=== PATIENT | female | born 1980 | race American Indian/Alaskan Native ===

== ENCOUNTER 2016-10-17 19:29 | Emergency (ER) | payer SELFPAY ==
[2016-10-17 20:16] VITALS: BP 144/97
[2016-10-17 20:48] LABS: Bacteria,Urine 1+ /HPF (Negative); Bilirubin,Urine NEG (Negative); Blood,Urine NEG (Negative); Ketones,Urine NEG (Negative); Leukocyte Esterase,Urine NEG (Negative); Mucus,Urine FEW /HPF; Nitrite,Urine NEG (Negative); Protein,Urine <15 mg/dL mg/dL (Negative); Urobilinogen,Urine < 2.0 mg/dL (<2.0)
--- NOTE | 2016-10-17 22:40 | Emergency Department Report ---
HPI - General Chief Complaint: Sore Throat Time Seen by Provider: 10/17/16 22:30 - HPI HPI: This is a 35-year-old Afro-[place] female who presents to the emergency department with a one-day history of some sore throat, and neck pain. She is also been having a few days of some nasal/sinus congestion. She also complains of some intermittent abdominal pains that first started on the left side and went away, then went to the right side, and seems to be moving around. She denies any dysuria, vaginal bleeding, vaginal discharge, back pain. She denies any fever but says that her temperature did go up to 99.6. She took 2 Augmentin pills that she had left over. The patient is from [place] and returns back there and about 1.5 months but therefore does not have a local primary care physician. ED Past Medical Hx - Past Medical History Previous Medical History?: Yes Hx Hypertension: Yes Hx Psychiatric Treatment: Yes (anxiety) - Surgical History Additional Surgical History: 2003 - Social History Smoking Status: Current Every Day Smoker ED Review of Systems ROS: Stated complaint: FEVER/NECK/ABD/THROAT PAIN Other details as noted in HPI Comment: All other systems reviewed and negative Constitutional: chills. denies: weakness Eyes: denies: eye pain, eye discharge, vision change ENT: throat pain, congestion. denies: ear pain Respiratory: denies: cough, shortness of breath, wheezing Cardiovascular: denies: chest pain, palpitations Gastrointestinal: abdominal pain. denies: nausea, vomiting Genitourinary: denies: dysuria, discharge Musculoskeletal: myalgia. denies: back pain Skin: denies: rash, lesions Neurological: denies: headache, weakness, paresthesias Physical Exam - Physical Exam Vital Signs: Vital Signs 10/17/16 20:09 Temperature 99.2 F Pulse Rate 85 Respiratory 20 Rate Blood Pressure 144/97 O2 Sat by Pulse 100 Oximetry Physical Exam: GENERAL: The patient is well-developed well-nourished. HEENT: Normocephalic. Atraumatic. Extraocular motions are intact. Patient has moist mucous membranes. Pupils equal reactive to light bilaterally. Normal -appearing external ear canals and tympanic membranes. There is some boggy nasal mucosa. Oropharynx is mostly unremarkable except for some cobblestoning appearance to the posterior oropharynx but there is no tonsillar hypertrophy, erythema or exudates. No drooling or trismus. NECK: Supple. Trachea is midline. Full range of motion. There is some reproducible tenderness palpation along the trapezius muscle and to the lateral cervical muscles. CHEST/LUNGS: Clear to auscultation. There is no respiratory distress noted. HEART/CARDIOVASCULAR: Regular. There is no tachycardia. There is no gallop rub or murmur. ABDOMEN: Abdomen is soft, nontender. Patient has normal bowel sounds. There is no abdominal distention. SKIN: Skin is warm and dry. NEURO: The patient is awake, alert, and oriented. The patient is cooperative. The patient has no focal neurologic deficits. The patient has normal speech. MUSCULOSKELETAL: There is no tenderness or deformity. There is no limitation range of motion. There is no evidence of acute injury. ED Course Vital Signs 10/17/16 20:09 Temperature 99.2 F Pulse Rate 85 Respiratory 20 Rate Blood Pressure 144/97 O2 Sat by Pulse 100 Oximetry ED Medical Decision Making - Medical Decision Making 35-year-old female presents the emergency department with multiple complaints including a sore/stiff neck to the lateral/bilateral neck and appears most consistent with musculoskeletal soreness/pain. There is no midline pain. No signs of any meningitis. She has taut musculature over the trapezius muscle. She complains of a sore throat and has a cobblestoning appearance but otherwise does not have any signs of strep pharyngitis. However a strep test was ordered but the patient eloped prior to having this done. She complained of some abdominal discomfort here in there and was concerned for a possible UTI. However urinalysis does not show any urinary tract infection and the patient is not . Since the patient eloped she did not receive any discharge paperwork nor any referrals for local physicians. Prior to the patient eloping we have discussed how she most likely has a viral syndrome but if her strep test was positive she will be started on antibiotics. - Differential Diagnosis viral syndrome, strep pharyngitis, mono Critical Care Time: No Critical care attestation.: If time is entered above; I have spent that time in minutes in the direct care of this critically ill patient, excluding procedure time. ED Disposition Clinical Impression: Musculoskeletal pain, Sore throat Disposition: ELOPED Is pt being admited?: No Condition: Stable Referrals: PRIMARY CARE, [Referring] - 3-5 Days Time of Disposition: 23:13
== END 2016-10-17 23:33 | disposition left against medical advice (07) ==
LOC: ED 19:29
DX: J02.9 Acute pharyngitis, unspecified (principal); M54.2 Cervicalgia; I10 Essential (primary) hypertension; F41.9 Anxiety disorder, unspecified; F17.200 Nicotine dependence, unspecified, uncomplicated; Z88.8 Allergy status to other drugs, medicaments and biological substances
CPT/HCPCS: 81001; 81025; 99283

== ENCOUNTER 2017-02-28 07:09 | Emergency (ER) | payer SELFPAY | END 2017-02-28 07:30 | disposition home or self-care (01) | LOC: ED 07:09 | DX: R07.89 Other chest pain (principal); Z53.21 Procedure and treatment not carried out due to patient leaving prior to being seen by health care provider ==